=== PATIENT | female | born 1990 | race Caucasian/White ===

== ENCOUNTER 2024-02-12 18:44 | Emergency (ER) | payer MEDICAID ==
[~2024-02-12] VITALS: Ht 167.6 cm; Wt 95.3 kg
[2024-02-12 18:53] VITALS: BP 155/92; PULSE 101; RESP 18; TEMP 98.6; O2SAT 100
[2024-02-12] MEDS ORDERED: CYCL-711 PO (19:40)
[2024-02-12] MEDS ORDERED: METH1ADH21 TP (19:40)
[2024-02-12] MEDS: KETOROLAC 30 MG/ML VIAL IM ONE (19:49)
== END 2024-02-12 20:09 | disposition home or self-care (01) ==
LOC: MED 18:44
DX: G44.209 Tension-type headache, unspecified, not intractable (principal); R50.9 Fever, unspecified; M54.2 Cervicalgia; Z79.899 Other long term (current) drug therapy
CPT/HCPCS: 96372; 99283; J1885